=== PATIENT | female | born 1950 | race Caucasian/White ===

== ENCOUNTER 2016-10-10 10:26 | Emergency (ER) | payer MEDICARE ==
[~2016-10-10] VITALS: Ht 157.5 cm; Wt 74.2 kg
[~2016-10-10 10:26] MED LIST: ALLEGRA60 MG PO; AMLODIPINE5 MG PO; ASMANEX 60220 MCG IN; AUGMENTIN500TAB PO; BENAZEPRIL5 M2 PO; BENAZEPRIL5 M3 PO; CHANTIX1 MG PO; COZAAR50 MG PO; LEVAQUIN750 MG PO; LEVOTHYROXIN50 MCG PO; LORTAB 7.57.5 MG PO; LOSARTAN POT50 MG PO; METOPROL TAR25 MG PO; MULTI FOR HER 50+ PO; MULTIVITA2 PO; MULTIVITAMI9 PO; NASACORT AQ55 MCG/AC; OMEPRAZOLE20 MG PO; OXY1; PREDNISONE20 MG PO; PREFEST; PROTANDIM PO; PROVENTIL IN; ROBITUSSIN AC10 ML PO; SULFACET SOD10 % OU; SYMBICORT1 AE1 IN; VIT B12 SL; VITAMIN B-121000 MC1 SL; VITAMIN B-12500 MC2 BU; VITAMIN B-COMPLEX; ZITHROMAX250 MG PO; [UNRECOGNIZED DRUG - OTHER] PO
[2016-10-10] MEDS ORDERED: SYMBICORT 80-4.5MCG (10:36)
[2016-10-10 11:29] LABS: HEMATOCRIT 43.1 % (37.0-47.0); HEMOGLOBIN 14.5 g/dl (12.0-16.0); IMMATURE GRANULOCYTES 0.2 % (0.0-1.0); MEAN CELL VOLUME 97.1 fL CALC (80.0-100.0); MEAN CORPUSCULAR HGB 32.7 pG CALC (26.0-32.0); MEAN CORPUSCULAR HGB CONC 33.6 g/L CALC (32.0-36.0); NEUT# 3.06 thou/uL (2.00-7.15); RED BLOOD COUNT 4.44 mill/uL (4.20-5.60); RED CELL DISTRI WIDTH 13.8 % (11.5-15.5)
[2016-10-10 12:41] LABS: ALBUMIN 4.3 g/dL (3.2-5.0); ALKALINE PHOSPHATASE 55 u/l (38-126); ANION GAP 15 (6-22 (CALC)); BILIRUBIN, TOTAL 0.8 mg/dL (0.0-1.4); BUN 15 mg/dL (8-23); BUN/CREATININE RATIO 23 (12-20 (CALC)); CALCIUM 9.9 mg/dL (8.4-10.2); CARBON DIOXIDE 26 mmol/l (22-30); CHLORIDE 103 mmol/l (95-108); CREATININE 0.6 mg/dL (0.5-1.0); GFR > 60 ML/MIN (>=60 (CALC)); GFR FOR AFR.AMER. > 60 ML/MIN (>=60 (CALC)); GLUCOSE 114 mg/dL (82-115); POTASSIUM 4.2 mmol/l (3.5-5.1); SGOT/AST 33 u/l (9-36); SGPT/ALT 36 u/l (11-66); SODIUM 139 mmol/l (137-146); TOTAL PROTEIN 7.1 g/dL (6.3-8.2)
[2016-10-10 17:40] VITALS: BP 168/100
== END 2016-10-10 17:48 | disposition home or self-care (01) ==
LOC: ED 10:26
PROVIDERS: Emergency Medicine
DX: H57.04 Mydriasis (principal); I10 Essential (primary) hypertension; J44.9 Chronic obstructive pulmonary disease, unspecified; E03.9 Hypothyroidism, unspecified; Z85.3 Personal history of malignant neoplasm of breast; Z92.3 Personal history of irradiation; Z92.21 Personal history of antineoplastic chemotherapy
CPT/HCPCS: A9579

== ENCOUNTER → 2018-07-16 | Outpatient (REF) | payer MEDICARE ==
[~2018-07-16] MED LIST changes: +SYMBICORT 80-4.5MCG
== END | disposition home or self-care (01) ==
LOC: BD 10:39
PROVIDERS: ATTEND Nurse Practitioner
DX: N95.1 Menopausal and female climacteric states (principal)

== ENCOUNTER → 2018-08-04 | Outpatient (REF) | payer MEDICARE ==
[2018-08-04 08:21] LABS: HEMATOCRIT 44.9 % (37.0-47.0); HEMOGLOBIN 14.8 g/dl (12.0-16.0); MEAN CELL VOLUME 96.6 fL CALC (80.0-100.0); MEAN CORPUSCULAR HGB 31.8 pG CALC (26.0-32.0); RED BLOOD COUNT 4.65 mill/uL (4.20-5.60); RED CELL DISTRI WIDTH 13.6 % (11.5-15.5)
[2018-08-04 08:35] LABS: ALBUMIN 4.1 g/dL (3.2-5.0); ALKALINE PHOSPHATASE 61 u/l (38-126); ANION GAP 13 (6-22 (CALC)); BILIRUBIN, TOTAL 0.4 mg/dL (0.0-1.4); BUN 20 mg/dL (8-23); BUN/CREATININE RATIO 28 (12-20 (CALC)); CALCULATED LDLCHOLESTEROL 112 mg/dL (62-129 (CALC)); CARBON DIOXIDE 27 mmol/l (22-30); CHLORIDE 104 mmol/l (95-108); CHOLESTEROL HDL RATIO 2.2 (<4.4 (CALC)); CREATININE 0.7 mg/dL (0.5-1.0); GFR > 60 ML/MIN (>=60 (CALC)); GFR FOR AFR.AMER. > 60 ML/MIN (>=60 (CALC)); HDL CHOLESTEROL 105 mg/dL (>=40); POTASSIUM 4.5 mmol/l (3.5-5.1); SGOT/AST 29 u/l (9-36); SODIUM 140 mmol/l (137-146); TOTAL CHOLESTEROL 226 mg/dl (0-199); TOTAL PROTEIN 6.7 g/dL (6.3-8.2); TOTAL TRIGLYCERIDES 44 mg/dl (30-149); VLDL CHOLESTROL 9 mg/dl (0-48 (CALC))
[2018-08-04 09:02] LABS: TSH, 3RD GENERATION 0.67 uIU/mL (0.47 - 4.68)
== END | disposition home or self-care (01) ==
LOC: LAB 07:29
PROVIDERS: ATTEND Nurse Practitioner
DX: E03.9 Hypothyroidism, unspecified (principal); I10 Essential (primary) hypertension; J43.1 Panlobular emphysema

== ENCOUNTER 2018-08-12 14:36 | Emergency (ER) | payer MEDICARE ==
[~2018-08-12] VITALS: Ht 157.5 cm; Wt 80.0 kg
[2018-08-12] MEDS ORDERED: LOSARTAN POT50 MG PO (14:54)
[2018-08-12 15:09] LABS: HEMATOCRIT 46.5 % (37.0-47.0); IMMATURE GRANULOCYTES 0.4 % (0.0-5.0); MEAN CELL VOLUME 95.3 fL CALC (80.0-100.0); MEAN CORPUSCULAR HGB 30.7 pG CALC (26.0-32.0); MEAN CORPUSCULAR HGB CONC 32.3 g/L CALC (32.0-36.0); NEUT# 5.16 thou/uL (2.00-7.15); RED BLOOD COUNT 4.88 mill/uL (4.20-5.60); RED CELL DISTRI WIDTH 13.3 % (11.5-15.5)
[2018-08-12 15:11] LABS: GFR > 60 ML/MIN (>=60 (CALC)); GFR FOR AFR.AMER. > 60 ML/MIN (>=60 (CALC))
[2018-08-12 15:20] LABS: ANION GAP 14 (6-22 (CALC)); BUN 20 mg/dL (8-23); BUN/CREATININE RATIO 37 (12-20 (CALC)); CARBON DIOXIDE 25 mmol/l (22-30); CHLORIDE 103 mmol/l (95-108); CREATININE 0.5 mg/dL (0.5-1.0); GFR > 60 ML/MIN (>=60 (CALC)); GFR FOR AFR.AMER. > 60 ML/MIN (>=60 (CALC)); SODIUM 139 mmol/l (137-146)
[2018-08-12 17:09] LABS: ACT PARTIAL THROMBO TIME 25.9 SECONDS (20.0-32.5); INTERNATIONAL NORMALIZED RATIO 0.9 RATIO (0.7-1.3); PROTHROMBIN TIME 9.6 SECONDS (9.0-12.5)
[2018-08-12 17:26] VITALS: BP 182/98
== END 2018-08-12 17:27 | disposition short-term general hospital (02) ==
LOC: ED 14:36
PROVIDERS: Family Medicine
DX: I26.99 Other pulmonary embolism without acute cor pulmonale (principal); R91.8 Other nonspecific abnormal finding of lung field; Z87.891 Personal history of nicotine dependence; R06.02 Shortness of breath
CPT/HCPCS: J1644; Q9967

== ENCOUNTER 2018-09-28 13:43 | Emergency (ER) | payer MEDICARE ==
[~2018-09-28] VITALS: Ht 157.5 cm; Wt 60.0 kg
[2018-09-28 14:13] LABS: GFR > 60 ML/MIN (>=60 (CALC)); GFR FOR AFR.AMER. > 60 ML/MIN (>=60 (CALC))
[2018-09-28 14:16] LABS: HEMATOCRIT 43.4 % (37.0-47.0); HEMOGLOBIN 14.3 g/dl (12.0-16.0); IMMATURE GRANULOCYTES 0.3 % (0.0-5.0); MEAN CELL VOLUME 94.3 fL CALC (80.0-100.0); MEAN CORPUSCULAR HGB 31.1 pG CALC (26.0-32.0); MEAN CORPUSCULAR HGB CONC 32.9 g/L CALC (32.0-36.0); NEUT# 4.21 thou/uL (2.00-7.15); RED BLOOD COUNT 4.6 mill/uL (4.20-5.60)
[2018-09-28 14:27] LABS: ALBUMIN 4.4 g/dL (3.2-5.0); ALKALINE PHOSPHATASE 65 u/l (38-126); ANION GAP 14 (6-22 (CALC)); BILIRUBIN, TOTAL 0.4 mg/dL (0.0-1.4); BUN 20 mg/dL (8-23); BUN/CREATININE RATIO 35 (12-20 (CALC)); CARBON DIOXIDE 27 mmol/l (22-30); CHLORIDE 102 mmol/l (95-108); CREATININE 0.6 mg/dL (0.5-1.0); GFR > 60 ML/MIN (>=60 (CALC)); GFR FOR AFR.AMER. > 60 ML/MIN (>=60 (CALC)); SGOT/AST 37 u/l (9-36); SODIUM 139 mmol/l (137-146); TOTAL PROTEIN 7.1 g/dL (6.3-8.2)
[2018-09-28 14:28] LABS: INTERNATIONAL NORMALIZED RATIO 0.9 RATIO (0.7-1.3); PROTHROMBIN TIME 9.9 SECONDS (9.0-12.5)
[2018-09-28 14:32] LABS: POTASSIUM 3.8 mmol/l (3.5-5.1)
[2018-09-28] MEDS ORDERED: AMLODIPINE5 MG PO (15:22)
[2018-09-28] MEDS ORDERED: ELIQUIS5 MG PO (15:23)
[2018-09-28] MEDS ORDERED: SYMBICORT1 AE1 IN (15:36)
[2018-09-28] MEDS ORDERED: ALENDRONATE70 MG PO (15:36)
[2018-09-28] MEDS ORDERED: SPIRIVA RE2.5 MCG/AC IN (15:37)
[2018-09-28 17:09] VITALS: BP 135/92
== END 2018-09-28 17:09 | disposition home or self-care (01) ==
LOC: ED 13:43
PROVIDERS: Emergency Medicine
DX: R06.02 Shortness of breath (principal); I26.99 Other pulmonary embolism without acute cor pulmonale; I10 Essential (primary) hypertension; Z79.01 Long term (current) use of anticoagulants
CPT/HCPCS: Q9967

== ENCOUNTER 2018-11-23 12:14 | Emergency (ER) | payer MEDICARE ==
[~2018-11-23] VITALS: Ht 157.5 cm; Wt 70.0 kg
[~2018-11-23 12:14] MED LIST changes: +ALENDRONATE70 MG PO; +ELIQUIS5 MG PO; +SPIRIVA RE2.5 MCG/AC IN
[2018-11-23 13:07] LABS: HEMOGLOBIN 14.2 g/dl (12.0-16.0); IMMATURE GRANULOCYTES 1.2 % (0.0-5.0); MEAN CELL VOLUME 94.1 fL CALC (80.0-100.0); MEAN CORPUSCULAR HGB 31.1 pG CALC (26.0-32.0); NEUT# 5.73 thou/uL (2.00-7.15); RED BLOOD COUNT 4.57 mill/uL (4.20-5.60); RED CELL DISTRI WIDTH 13.8 % (11.5-15.5)
[2018-11-23 13:20] LABS: ALBUMIN 3.6 g/dL (3.2-5.0); ALKALINE PHOSPHATASE 66 u/l (38-126); ANION GAP 12 (6-22 (CALC)); BILIRUBIN, TOTAL 0.5 mg/dL (0.0-1.4); BUN 15 mg/dL (8-23); BUN/CREATININE RATIO 29 (12-20 (CALC)); CARBON DIOXIDE 27 mmol/l (22-30); CHLORIDE 103 mmol/l (95-108); CREATININE 0.5 mg/dL (0.5-1.0); GFR > 60 ML/MIN (>=60 (CALC)); GFR FOR AFR.AMER. > 60 ML/MIN (>=60 (CALC)); POTASSIUM 3.5 mmol/l (3.5-5.1); SGOT/AST 28 u/l (9-36); SODIUM 138 mmol/l (137-146); TOTAL PROTEIN 6.1 g/dL (6.3-8.2)
[2018-11-23 13:50] VITALS: BP 136/79
== END 2018-11-23 13:50 | disposition home or self-care (01) ==
LOC: ED 12:14
PROVIDERS: Emergency Medicine
DX: C34.90 Malignant neoplasm of unspecified part of unspecified bronchus or lung (principal); J91.8 Pleural effusion in other conditions classified elsewhere; I26.99 Other pulmonary embolism without acute cor pulmonale; I10 Essential (primary) hypertension; Z96.89 Presence of other specified functional implants

== ENCOUNTER 2018-12-07 08:19 | Inpatient (IN) | payer MEDICARE ==
[~2018-12-07] VITALS: Ht 157.5 cm; Wt 69.1 kg
--- NOTE | 2018-12-07 08:19 | NUR ---
PT FROM CAR TO ROOM 9 CHOCO TORIBIO COMPLETED AT BEDSIDE
--- NOTE | 2018-12-07 08:22 | NUR ---
PT WITH DYSPNEA AND TACHYPNEA, C/O RT MID BACK PAIN INCREASING FOR THREE DAYS. PT STATES SHE HAD FIRST CHEMO TREATMENT FOR RT LUNG CA ON November AND HAS BEEN FEELING DRAINED SINCE THEN. PT STATES SHE CAN BREATHE EASIER WHEN SHE LIES FLAT IN BED. , O2 SAT 89-92%ON RA
[2018-12-07 08:50] LABS: IMMATURE GRANULOCYTES 0.6 % (0.0-5.0); MEAN CELL VOLUME 94.1 fL CALC (80.0-100.0); MEAN CORPUSCULAR HGB 31.3 pG CALC (26.0-32.0); MEAN CORPUSCULAR HGB CONC 33.3 g/L CALC (32.0-36.0); NEUT# 11.11 thou/uL (2.00-7.15); RED BLOOD COUNT 5.62 mill/uL (4.20-5.60); RED CELL DISTRI WIDTH 13.8 % (11.5-15.5)
--- NOTE | 2018-12-07 08:50 | NUR ---
APPLIED O2@2LPM VIA NC FOR SUPPORTIVE CARE AFTER ABG.
--- NOTE | 2018-12-07 08:56 | NUR ---
PLACED PT ON 2LNC
[2018-12-07 08:59] LABS: BUN 15 mg/dL (8-23); BUN/CREATININE RATIO 23 (12-20 (CALC)); CARBON DIOXIDE 27 mmol/l (22-30); CHLORIDE 95 mmol/l (95-108); CREATININE 0.7 mg/dL (0.5-1.0); GFR > 60 ML/MIN (>=60 (CALC)); GFR FOR AFR.AMER. > 60 ML/MIN (>=60 (CALC)); SGOT/AST 44 u/l (9-36); SODIUM 133 mmol/l (137-146)
[2018-12-07 09:05] LABS: HEMATOCRIT 52.9 % (37.0-47.0); HEMOGLOBIN 17.6 g/dl (12.0-16.0)
--- NOTE | 2018-12-07 09:11 | NUR ---
RESP EVEN AND UNLABORED, VSS. PT C/O SHARP STABBING RT POSTERIOR MID BACK PAIN 10/10 WITH INSPIRATION. MEDICATED ORDERED. RESPOSITIONED FOR COMFORT. CONTINUES ON 02@2LPM VIA NC.
[2018-12-07 09:24] LABS: ANION GAP 15 (6-22 (CALC)); BILIRUBIN, TOTAL 1.1 mg/dL (0.0-1.4); POTASSIUM 4.4 mmol/l (3.5-5.1)
[2018-12-07 09:25] LABS: ALBUMIN 4.4 g/dL (3.2-5.0); ALKALINE PHOSPHATASE 108 u/l (38-126); TOTAL PROTEIN 7.7 g/dL (6.3-8.2)
--- NOTE | 2018-12-07 09:47 | NUR ---
MD AT BEDSIDE TO DISCUSS POC
--- NOTE | 2018-12-07 11:15 | NUR ---
Pt to radiology at this time. pt to be transported to [facility] after procedure.
--- NOTE | 2018-12-07 11:30 | NUR ---
CALLED REPORT TO [facility] MS[facility]
--- NOTE | 2018-12-07 11:36 | NUR ---
PT READY FOR TRANSFER TO [facility] TODAY [facility] WILL REMAIN INTACT FOR A FEW DAYS FOR URINARY RETENTION
--- NOTE | 2018-12-07 11:45 | NUR ---
MEDICATION ADMINISTERED IN RADIOLOGY DUE TO PATIENT HAVING PROCEDURE. UNABLE TO SCAN PATIENT AT TIME DUE TO NEED OF MEDICATION. VERIFIED PT WITH NAME AND
[2018-12-07 12:10] VITALS: BP 114/81
--- NOTE | 2018-12-07 12:15 | NUR ---
PT ARRIVED TO THE UNIT VIA STRETCHER ACCOMPANIED BY STAFF. IV SITE IS FREE FROM REDNESS OR EDEMA.
--- NOTE | 2018-12-07 12:30 | NUR ---
ASSESSMENT IS COMPLTED: IV SITE IS FREE FROM REDNESS OR EDEMA. HR IS REG, PULSES ARE STRONG X4, ABD IS SOFT WITH ACTIVE BS. BREATH SOUNDS ARE CLEAR, BILATERALLY, PORT TO DRAIN THE LUNG. IS COVERED WITH DRESSING IS CDI. CONTINUE TO OBSERVE AND MONITOR.
[2018-12-07 15:00] VITALS: BP 101/69
--- NOTE | 2018-12-07 16:00 | NUR ---
pt is relaxing in bed with no distress noted. iv site is free from redness or edema.
--- NOTE | 2018-12-07 19:05 | NUR ---
REPORT RECEIVED FROM DAY NURSE. PT IS IN BED IN LOW FOWLERS POSITION. REPORTS HAVING SOME PAIN, BUT WANTS TO WAIT FOR TORODOL AVAILABILITY STATING THAT IT WORKS BETTER. WILL FOLLOW-UP WITH PAIN MEDICATION WHEN AVAILABLE TO GIVE. POC DISCUSSED AND PT DENIES ANY OTHER NEEDS AT THIS TIME. CALL LIGHT IS AT SIDE AND PT REMINDED OF ITS USE.
[2018-12-07 19:47] VITALS: BP 108/72
--- NOTE | 2018-12-07 20:05 | NUR ---
PT MEDICATED FOR PAIN REPORTED 11/09. ASSESSMENT COMPLETED AT THIS TIME. SKIN AND NEURO'S INTACT, NO EDEMA NOTED, LUNG SOUNDS CLEAR/DIM, HR REG, ABD SOFT NON-TENDER W/ACTIVE BOWEL SOUNDS. PT REPORT NORMAL URINATION, STOOL TWO DAYS AGO NORMAL FOR HER. FLUIDS ARE RUNNING TO 22 IN THE LFA/SITE APPEARS HEALTHY. NO S/O DISTRESS OTHER THAN PAIN 11/09, PT TAKING DEEP BREATHS FOR PAIN. RESP @20. CALL LIGHT AT SIDE AND PT HAS BEEN ENCOURAGED TO CALL ANY NEEDS ARISE.
--- NOTE | 2018-12-07 23:15 | NUR ---
PT AMBULATED TO RESTROOM AND BACK TO BED, ASSISTED BY OTHER FLOOR NURSE. I ENTERED THE ROOM AT THIS TIME, PT WAS JUST GETTING BACK INTO THE BED. 800CC OF CLEAR YELLOW URINE EMPTIED. IVF REPLACED AT THIS TIME. PT DENIES ANY OTHER NEEDS AT THIS TIME. CALL LIGHT AT SIDE AND PT CONFIRMS THAT SHE CAN REACH.
--- NOTE | 2018-12-07 23:52 | NUR ---
PT MEDICATED W/IV ANTIBIOTIC THERAPY. PT WAS BACK TO SLEEP AT THIS TIME. NO S/O DISTRESS NOTED.
--- NOTE | 2018-12-08 01:35 | NUR ---
PT IS SLEEPING, NO S/O DISTRESS NOTED. CALL LIGHT AT SIDE.
[2018-12-08 04:05] VITALS: BP 121/66
[2018-12-08 04:35] LABS: IMMATURE GRANULOCYTES 0.3 % (0.0-5.0); MEAN CELL VOLUME 94.5 fL CALC (80.0-100.0); MEAN CORPUSCULAR HGB 30.9 pG CALC (26.0-32.0); MEAN CORPUSCULAR HGB CONC 32.7 g/L CALC (32.0-36.0); NEUT# 4.77 thou/uL (2.00-7.15); RED BLOOD COUNT 4.18 mill/uL (4.20-5.60); RED CELL DISTRI WIDTH 13.5 % (11.5-15.5)
[2018-12-08 04:37] LABS: HEMATOCRIT 39.5 % (37.0-47.0); HEMOGLOBIN 12.9 g/dl (12.0-16.0)
[2018-12-08 04:53] LABS: ALKALINE PHOSPHATASE 59 u/l (38-126); AMYLASE 39 u/l (30-110); ANION GAP 10 (6-22 (CALC)); BUN 16 mg/dL (8-23); BUN/CREATININE RATIO 32 (12-20 (CALC)); CARBON DIOXIDE 25 mmol/l (22-30); CHLORIDE 105 mmol/l (95-108); CREATININE 0.5 mg/dL (0.5-1.0); GFR > 60 ML/MIN (>=60 (CALC)); GFR FOR AFR.AMER. > 60 ML/MIN (>=60 (CALC)); LIPASE 69 u/l (23-300); MAGNESIUM 2.1 mg/dL (1.6-2.3); POTASSIUM 4.5 mmol/l (3.5-5.1); SGOT/AST 32 u/l (9-36); SODIUM 134 mmol/l (137-146)
[2018-12-08 04:56] LABS: ALBUMIN 2.5 g/dL (3.2-5.0); BILIRUBIN, TOTAL 0.6 mg/dL (0.0-1.4); TOTAL PROTEIN 4.6 g/dL (6.3-8.2)
--- NOTE | 2018-12-08 05:50 | NUR ---
PT MEDICATED W/IV ANTIBIOITIC THERAPY ORDERS PROVIDE. PT ASSISTED TO RESTROOM AND BACK TO BED. PT DENIES PAIN AT THIS TIME, REPORTING SHE HAS NOT FELT PAIN "SINCE 8PM LAST NIGHT." PT REPORT FEELING SOB UPON AMBULATION, LUNG SOUNDS DIM TO RLL, CLEAR THROUGHOUT 02SAT @96% ON 02@2L. PT REPORTS THAT SHE FEELS LIKE HER LUNG IS FILLING UP AGAIN, DENIES NEED FOR RESPIRATORY. WILL CONTINUE TO MONITOR.
--- NOTE | 2018-12-08 07:10 | NUR ---
PT REPORT RECIEVED FROM YULIYA LYNCH. PT SLEEPING. NO S/S OF DISTRESS. CALL LIGHT IN REACH. WILL CONTINUE TO MONITOR.
[2018-12-08 08:08] VITALS: BP 110/77
--- NOTE | 2018-12-08 08:08 | NUR ---
PT A/O X3. SPEECH IS CLEAR. NONPRODUCTIVE COUGH NOTED; SOB WHILE AT REST AND ON EXERTION. O2 @2L ON PT. RESP EVEN AND UNLABORED. LT UPPER LOBE CLEAR, LOWER LOBES DIMINISHED. RT LUNG DIMINISHED. BOWEL SOUNDS ACTIVE X4. PT C/O ABDOMINAL DISCOMFORT; REPOSITIONED FOR COMFORT. DRESSING TO RT SIDE OF ABDOMEN;CDI. STRONG RADIAL AND PEDAL PULSES. PT DENIES ANY FURTHER NEEDS. POC DISCUSSED. SAFETY PRECAUTIONS IN PLACE. CALL LIGHT IN REACH. WILL CONTINUE TO MONITOR.
--- NOTE | 2018-12-08 12:39 | NUR ---
PT C/O RT CHEST PAIN; 5 OUT OF 10 ON PAIN SCALE. MEDICATED W/ 15 MG TORADOL IV. REPOSITIONED FOR COMFORT. PT DENIES ANY FURTHER NEEDS. O2 @2L ON PT. CALL LIGHT IN REACH. WILL CONTINUE TO MONITOR.
--- NOTE | 2018-12-08 14:28 | NUR ---
MD WOULD LIKE PT RT PORT TO BE DRAINED. PT HAD FAMILY MEMBER BRING IN NEW SUPPLIES. BRANDON, RADIOLOGIST CALLED REGARDING NEED OF PORT DRAINAGE. MD NOTIFIED OF RADIOLOGIST RESPONSE. CONSULT TO BE CALLED BY MD TO DR. PARKER. WILL CONTINUE TO MONITOR.
[2018-12-08 15:53] VITALS: BP 122/78
--- NOTE | 2018-12-08 16:33 | NUR ---
PT UP TO RESTROOM. NO C/O PAIN OR NEEDS. CALL LIGHT IN REACH. WILL CONTINUE TO MONITOR.
[2018-12-08 20:25] VITALS: BP 109/68
--- NOTE | 2018-12-08 21:31 | NUR ---
PT ASSESSED, POC DISCUSSED. PT WANTED TO HOLD ELOQUIS DUE TO POSSIBILITY OF TUBE REPLACEMENT TOMORROW. LUNG SOUNDS ARE CLEAR THROUGHOUT/DIM TO RLL. NEURO'S INTACT, SKIN INTACT, NO NOTED EDEMA. CALL LIGHT IS W/IN REACH AND PT ENCOURAGED TO CALL IF ANY NEEDS ARISE.
--- NOTE | 2018-12-09 00:11 | NUR ---
PT MEDICATED ORDERS PROVIDE W/IV ANTIBIOTIC THERAPY. PT WAS SLEEPING SOUNDLY, AWOKE TO MY VOICE. FLUIDS HAVE BEEN REMOVED FROM BEDSIDE AND POC/DIET DISCUSSED W/PT. DENIES ANY OTHER NEEDS AT THIS TIME, BUT HAS BEEN ENCOURAGED TO CALL NEEDS ARISE.
[2018-12-09 05:01] VITALS: BP 122/81
--- NOTE | 2018-12-09 05:47 | NUR ---
ASSISTED PT TO RESTROOM AND BACK TO BED. EXTREME SOB UPON EXERTION, BUT QUICKLY RECOVERS UPON RETURNING TO BED AND LAYING FLAT. IV ANTIBIOTIIC THERAPY ADMINSTERED AT THIS TIME. CALL LIGHT AT BEDSIDE AND PT ENCOURAGED TO CALL.
--- NOTE | 2018-12-09 07:15 | NUR ---
PT REPORT RECIEVED FROM YULIYA RECIO. PT SLEEPING. NO S/S OF DISTRESS. CALL LIGHT IN REACH. WILL CONTINUE TO MONITOR.
[2018-12-09 08:40] VITALS: BP 132/80
--- NOTE | 2018-12-09 08:40 | NUR ---
PT A/O X3. SPEECH IS CLEAR. PT C/O INCREASED SOB. O2 @2L ON PT. ASSISTED TO COMFORTABLE POSITION IN BED. RESP EVEN AND UNLABORED. LUNG SOUNDS DIMINISHED. BOWEL SOUNDS ACTIVE X4. STRONG RADIAL AND PEDAL PULSES. #20 RFA SL. FLUSHED AND PATENT. SITE APPEARS HEALTHY. DRESSING TO RT ABDOMEN;CDI. PT DENIES ANY PAIN OR FURTHER NEEDS. POC DISCUSSED. SAFETY PRECAUTIONS IN PLACE. CALL LIGHT IN REACH. WILL CONTINUE TO MONITOR.
--- NOTE | 2018-12-09 12:28 | NUR ---
PT LYING IN BED. NO C/O PAIN OR NEEDS. CALL LIGHT IN REACH. WILL CONTINUE TO MONITOR.
--- NOTE | 2018-12-09 16:40 | NUR ---
PT WATCHING TELEVISION. NO C/O PAIN OR NEEDS. CALL LIGHT IN REACH. WILL CONTINUE TO MONITOR.
[2018-12-09 16:57] VITALS: BP 137/88
--- NOTE | 2018-12-09 19:36 | NUR ---
[facility]
[2018-12-09 19:59] VITALS: BP 121/79
--- NOTE | 2018-12-09 21:23 | NUR ---
ASSESSMENT COMPLETED; IV SITE PATENT AND SL TO RAC; PT. C/O BACK PAIN AND IS MEDICATED WITH ORDERED IV TORADOL.ALSO MEDICATED WITH ONE TIME LOVENOX. INTERNAL PORT NOTED TO RIGHT SIDE WITH DRESSING CDI. UPDATED WITH POC.
--- NOTE | 2018-12-09 21:28 | NUR ---
TRANSPORT HERE TO ELECTION ASSISTANT PT. PT. STABLE AND ON O2 @2LITERS/MIN PER NC.
--- NOTE | 2018-12-09 22:00 | NUR ---
NOTIFIED [facility] THAT PT. IS IN TRANSIT AND OF ADMINISTRATION OF LOVENOX AND TORADOL BY THIS ASSISTED LIVING MANAGER PRIOR TO LEAVING.
== END 2018-12-09 21:30 | disposition short-term general hospital (02) | DRG 177 ==
LOC: ED 08:19 → ED-I 10:48 → ED 11:15 → MS2 11:16
PROVIDERS: Emergency Medicine; ADMIT Internal Medicine Nephrology; ATTEND Internal Medicine Nephrology
PROC: 0W9930Z Drainage of Right Pleural Cavity with Drainage Device, Percutaneous Approach (ICD-10-PCS; principal; 2018-12-07)
DX: J86.9 Pyothorax without fistula (principal); J18.9 Pneumonia, unspecified organism; J96.01 Acute respiratory failure with hypoxia; C34.91 Malignant neoplasm of unspecified part of right bronchus or lung; J91.0 Malignant pleural effusion; I10 Essential (primary) hypertension; I25.10 Atherosclerotic heart disease of native coronary artery without angina pectoris; E03.9 Hypothyroidism, unspecified; J44.9 Chronic obstructive pulmonary disease, unspecified; I95.9 Hypotension, unspecified; G89.3 Neoplasm related pain (acute) (chronic); B96.89 Other specified bacterial agents as the cause of diseases classified elsewhere; Z85.3 Personal history of malignant neoplasm of breast; Z86.711 Personal history of pulmonary embolism; Z79.899 Other long term (current) drug therapy
CPT/HCPCS: J1650

== ENCOUNTER 2019-06-09 | Emergency (ER) | payer MEDICARE | END 2019-06-09 20:05 | disposition home or self-care (01) | DX: I83.11 Varicose veins of right lower extremity with inflammation (principal); I10 Essential (primary) hypertension; J44.9 Chronic obstructive pulmonary disease, unspecified; Z85.118 Personal history of other malignant neoplasm of bronchus and lung; Z92.3 Personal history of irradiation; Z92.21 Personal history of antineoplastic chemotherapy; Z86.718 Personal history of other venous thrombosis and embolism; Z86.711 Personal history of pulmonary embolism ==

== ENCOUNTER 2019-06-13 | Emergency (ER) | payer MEDICARE ==
[2019-06-13] MEDS ORDERED: ALENDRONATE SOD70 MG PO (09:30)
[2019-06-13] MEDS ORDERED: AMOX/K CLAV875 M1 PO (09:31)
[2019-06-13 09:39] LABS: HEMATOCRIT 41.8 % (37.0-47.0); HEMOGLOBIN 13.8 g/dl (12.0-16.0); IMMATURE GRANULOCYTES 0.3 % (0.0-5.0); NEUT# 7.26 thou/uL (2.00-7.15); RED BLOOD COUNT 4.18 mill/uL (4.20-5.60); RED CELL DISTRI WIDTH 12.6 % (11.5-15.5)
[2019-06-13 09:57] LABS: ACT PARTIAL THROMBO TIME 24.5 SECONDS (20.0-32.5); ALBUMIN 4.4 g/dL (3.2-5.0); ALKALINE PHOSPHATASE 75 u/l (38-126); ANION GAP 13 (6-22 (CALC)); BUN 17 mg/dL (8-23); BUN/CREATININE RATIO 29 (12-20 (CALC)); CARBON DIOXIDE 26 mmol/l (22-30); CHLORIDE 102 mmol/l (95-108); CREATININE 0.6 mg/dL (0.5-1.0); GFR > 60 ML/MIN (>=60 (CALC)); GFR FOR AFR.AMER. > 60 ML/MIN (>=60 (CALC)); INTERNATIONAL NORMALIZED RATIO 0.9 RATIO (0.7-1.3); LIPASE 100 u/l (23-300); POTASSIUM 3.9 mmol/l (3.5-5.1); PROTHROMBIN TIME 9.8 SECONDS (9.0-12.5); SGOT/AST 44 u/l (9-36); SODIUM 137 mmol/l (137-146); TOTAL PROTEIN 7.6 g/dL (6.3-8.2)
[2019-06-13 09:59] LABS: BILIRUBIN, TOTAL 0.6 mg/dL (0.0-1.4)
[2019-06-13 11:00] LABS: URINE BILIRUBIN - DIPSTICK NEGATIVE (NEGATIVE); URINE BLOOD DIPSTICK NEGATIVE (NEGATIVE); URINE COLOR YELLOW; URINE GLUCOSE - DIPSTICK NEGATIVE (NEGATIVE); URINE KETONE NEGATIVE (NEGATIVE); URINE LEUK ESTERASE NEGATIVE (NEGATIVE); URINE NITRITE - DIPSTICK NEGATIVE (Negative); URINE PROTEIN - DIPSTICK NEGATIVE (NEG-TRACE); URINE UROBILINOGEN - DIPSTICK 0.2 E.U./dL (0.2)
[2019-06-13] MEDS ORDERED: LEVAQUIN500 MG PO (11:47)
[2019-06-13] MEDS ORDERED: METRONIDAZOL250 MG PO (11:47)
== END 2019-06-13 11:56 | disposition home or self-care (01) ==
DX: L03.115 Cellulitis of right lower limb (principal); K57.32 Diverticulitis of large intestine without perforation or abscess without bleeding; C34.31 Malignant neoplasm of lower lobe, right bronchus or lung; J91.0 Malignant pleural effusion; I10 Essential (primary) hypertension; I71.2 Thoracic aortic aneurysm, without rupture; J44.9 Chronic obstructive pulmonary disease, unspecified; Z86.711 Personal history of pulmonary embolism
CPT/HCPCS: Q9967

== ENCOUNTER 2019-06-20 | Emergency (ER) | payer MEDICARE ==
[~2019-06-20] MED LIST changes: +ALENDRONATE SOD70 MG PO; +AMOX/K CLAV875 M1 PO; +LEVAQUIN500 MG PO; +METRONIDAZOL250 MG PO
[2019-06-20 20:08] LABS: HEMOGLOBIN 14.7 g/dl (12.0-16.0); IMMATURE GRANULOCYTES 0.3 % (0.0-5.0); MEAN CORPUSCULAR HGB 32.7 pG CALC (26.0-32.0); MEAN CORPUSCULAR HGB CONC 32.7 g/L CALC (32.0-36.0); NEUT# 6.67 thou/uL (2.00-7.15); RED BLOOD COUNT 4.5 mill/uL (4.20-5.60); RED CELL DISTRI WIDTH 12.6 % (11.5-15.5)
[2019-06-20 20:25] LABS: ALBUMIN 4.4 g/dL (3.2-5.0); ALKALINE PHOSPHATASE 80 u/l (38-126); ANION GAP 16 (6-22 (CALC)); BILIRUBIN, TOTAL 0.5 mg/dL (0.0-1.4); BUN 11 mg/dL (8-23); BUN/CREATININE RATIO 20 (12-20 (CALC)); CARBON DIOXIDE 24 mmol/l (22-30); CHLORIDE 102 mmol/l (95-108); CREATININE 0.5 mg/dL (0.5-1.0); GFR > 60 ML/MIN (>=60 (CALC)); GFR FOR AFR.AMER. > 60 ML/MIN (>=60 (CALC)); MAGNESIUM 2.1 mg/dL (1.6-2.3); POTASSIUM 4.3 mmol/l (3.5-5.1); SGOT/AST 39 u/l (9-36); SODIUM 138 mmol/l (137-146); TOTAL PROTEIN 7.5 g/dL (6.3-8.2)
[2019-06-20] MEDS ORDERED: TORADOL PO (20:56)
[2019-06-20] MEDS ORDERED: TRAMADOL HCL50 MG PO (20:56)
== END 2019-06-20 21:24 | disposition home or self-care (01) ==
PROVIDERS: Family Medicine
DX: M54.2 Cervicalgia (principal); R09.1 Pleurisy; I10 Essential (primary) hypertension

== ENCOUNTER 2019-07-18 | Emergency (ER) | payer MEDICARE ==
[~2019-07-18] MED LIST changes: +TORADOL PO; +TRAMADOL HCL50 MG PO
[2019-07-18 11:22] LABS: IMMATURE GRANULOCYTES 0.5 % (0.0-5.0); MEAN CELL VOLUME 95.4 fL CALC (80.0-100.0); MEAN CORPUSCULAR HGB 31.5 pG CALC (26.0-32.0); NEUT# 7.52 thou/uL (2.00-7.15); RED BLOOD COUNT 3.94 mill/uL (4.20-5.60); RED CELL DISTRI WIDTH 12.5 % (11.5-15.5)
[2019-07-18 11:23] LABS: GFR > 60 ML/MIN (>=60 (CALC)); GFR FOR AFR.AMER. > 60 ML/MIN (>=60 (CALC))
[2019-07-18 11:25] LABS: HEMATOCRIT 37.6 % (37.0-47.0); HEMOGLOBIN 12.4 g/dl (12.0-16.0)
[2019-07-18 11:34] LABS: ALBUMIN 3.9 g/dL (3.2-5.0); ALKALINE PHOSPHATASE 101 u/l (38-126); ANION GAP 12 (6-22 (CALC)); BILIRUBIN, TOTAL 0.7 mg/dL (0.0-1.4); BUN 14 mg/dL (8-23); BUN/CREATININE RATIO 28 (12-20 (CALC)); CARBON DIOXIDE 28 mmol/l (22-30); CHLORIDE 97 mmol/l (95-108); CREATININE 0.5 mg/dL (0.5-1.0); GFR > 60 ML/MIN (>=60 (CALC)); GFR FOR AFR.AMER. > 60 ML/MIN (>=60 (CALC)); SGOT/AST 37 u/l (9-36); SODIUM 132 mmol/l (137-146); TOTAL PROTEIN 6.8 g/dL (6.3-8.2)
[2019-07-18 12:01] LABS: INTERNATIONAL NORMALIZED RATIO 0.9 RATIO (0.7-1.3); PROTHROMBIN TIME 9.9 SECONDS (9.0-12.5)
== END 2019-07-18 13:10 | disposition short-term general hospital (02) ==
PROVIDERS: Family Medicine
DX: I26.99 Other pulmonary embolism without acute cor pulmonale (principal); I82.402 Acute embolism and thrombosis of unspecified deep veins of left lower extremity; C34.90 Malignant neoplasm of unspecified part of unspecified bronchus or lung; C22.9 Malignant neoplasm of liver, not specified as primary or secondary; I10 Essential (primary) hypertension
CPT/HCPCS: J1644; Q9967

== ENCOUNTER 2019-08-23 12:19 | Observation (INO) | payer MEDICARE ==
[~2019-08-23] VITALS: Ht 152.4 cm; Wt 79.8 kg
[2019-08-23 12:54] LABS: HEMATOCRIT 40.9 % (37.0-47.0); HEMOGLOBIN 13.5 g/dl (12.0-16.0); IMMATURE GRANULOCYTES 1.1 % (0.0-5.0); MEAN CELL VOLUME 95.6 fL CALC (80.0-100.0); MEAN CORPUSCULAR HGB 31.5 pG CALC (26.0-32.0); NEUT# 4.05 thou/uL (2.00-7.15); RED BLOOD COUNT 4.28 mill/uL (4.20-5.60); RED CELL DISTRI WIDTH 15.4 % (11.5-15.5)
[2019-08-23] MEDS ORDERED: ELIQUIS5 MG PO (12:56)
[2019-08-23 13:09] LABS: ANION GAP 13 (6-22 (CALC)); BUN 14 mg/dL (8-23); BUN/CREATININE RATIO 32 (12-20 (CALC)); CARBON DIOXIDE 25 mmol/l (22-30); CHLORIDE 102 mmol/l (95-108); CREATININE 0.4 mg/dL (0.5-1.0); GFR > 60 ML/MIN (>=60 (CALC)); GFR FOR AFR.AMER. > 60 ML/MIN (>=60 (CALC)); SODIUM 137 mmol/l (137-146)
[2019-08-23 18:00] VITALS: BP 167/93
[2019-08-23 20:15] VITALS: BP 163/94
[2019-08-24] VITALS (7 sets, daily range): BP systolic 95–150; BP diastolic 54–86
[2019-08-24 12:11] LABS: URINE BILIRUBIN - DIPSTICK NEGATIVE (NEGATIVE); URINE BLOOD DIPSTICK NEGATIVE (NEGATIVE); URINE COLOR YELLOW; URINE GLUCOSE - DIPSTICK NEGATIVE (NEGATIVE); URINE KETONE NEGATIVE (NEGATIVE); URINE LEUK ESTERASE NEGATIVE (NEGATIVE); URINE NITRITE - DIPSTICK NEGATIVE (Negative); URINE PH 6.5 (4.5-8.0); URINE PROTEIN - DIPSTICK NEGATIVE (NEG-TRACE); URINE UROBILINOGEN - DIPSTICK 0.2 E.U./dL (0.2)
[2019-08-25 03:25] VITALS: BP 119/73
[2019-08-25 06:05] LABS: HEMATOCRIT 37.6 % (37.0-47.0); HEMOGLOBIN 11.9 g/dl (12.0-16.0); MEAN CELL VOLUME 96.4 fL CALC (80.0-100.0); MEAN CORPUSCULAR HGB 30.5 pG CALC (26.0-32.0); MEAN CORPUSCULAR HGB CONC 31.6 g/dL CAL (32.0-36.0); RED BLOOD COUNT 3.9 mill/uL (4.20-5.60); RED CELL DISTRI WIDTH 15.8 % (11.5-15.5)
[2019-08-25 06:20] LABS: ANION GAP 10 (6-22 (CALC)); BUN 8 mg/dL (8-23); BUN/CREATININE RATIO 17 (12-20 (CALC)); CARBON DIOXIDE 25 mmol/l (22-30); CHLORIDE 109 mmol/l (95-108); CREATININE 0.4 mg/dL (0.5-1.0); GFR > 60 ML/MIN (>=60 (CALC)); GFR FOR AFR.AMER. > 60 ML/MIN (>=60 (CALC)); POTASSIUM 4.1 mmol/l (3.5-5.1); SODIUM 139 mmol/l (137-146)
[2019-08-25 09:01] VITALS: BP 141/79
[2019-08-25] MEDS ORDERED: OMNICEF300 MG PO (09:59)
[2019-08-25] MEDS ORDERED: ZITHROMAX500 MG PO (09:59)
== END 2019-08-25 11:22 | disposition home or self-care (01) ==
LOC: ED 12:19 → ED-I 14:25 → ED 15:05 → ED-I 15:06 → MS2 15:06
PROVIDERS: Family Medicine; Nurse Practitioner Family; ADMIT Internal Medicine; ATTEND Internal Medicine
DX: J18.9 Pneumonia, unspecified organism (principal); J43.9 Emphysema, unspecified; C34.91 Malignant neoplasm of unspecified part of right bronchus or lung; I10 Essential (primary) hypertension; I25.10 Atherosclerotic heart disease of native coronary artery without angina pectoris; I27.82 Chronic pulmonary embolism; I71.2 Thoracic aortic aneurysm, without rupture; E03.9 Hypothyroidism, unspecified; Z85.3 Personal history of malignant neoplasm of breast; Z87.891 Personal history of nicotine dependence; Z79.899 Other long term (current) drug therapy; Z86.718 Personal history of other venous thrombosis and embolism; Z79.01 Long term (current) use of anticoagulants; Z20.828 Contact with and (suspected) exposure to other viral communicable diseases
CPT/HCPCS: G0378; J0692; Q9967

== ENCOUNTER 2019-09-26 | Emergency (ER) | payer MEDICARE ==
[~2019-09-26] MED LIST changes: +OMNICEF300 MG PO; +ZITHROMAX500 MG PO
[2019-09-26 16:59] LABS: HEMATOCRIT 40.2 % (37.0-47.0); IMMATURE GRANULOCYTES 1.7 % (0.0-5.0); MEAN CELL VOLUME 97.6 fL CALC (80.0-100.0); MEAN CORPUSCULAR HGB 31.6 pG CALC (26.0-32.0); MEAN CORPUSCULAR HGB CONC 32.3 g/dL CAL (32.0-36.0); NEUT# 9.47 thou/uL (2.00-7.15); RED BLOOD COUNT 4.12 mill/uL (4.20-5.60); RED CELL DISTRI WIDTH 19.3 % (11.5-15.5)
[2019-09-26 17:16] LABS: GFR > 60 ML/MIN (>=60 (CALC)); GFR FOR AFR.AMER. > 60 ML/MIN (>=60 (CALC))
[2019-09-26 17:19] LABS: INTERNATIONAL NORMALIZED RATIO 0.9 RATIO (0.7-1.3); PROTHROMBIN TIME 9.4 SECONDS (9.0-12.5)
[2019-09-26 17:52] LABS: ALBUMIN 3.7 g/dL (3.2-5.0); ALKALINE PHOSPHATASE 113 u/l (38-126); ANION GAP 11 (6-22 (CALC)); BILIRUBIN, TOTAL 0.4 mg/dL (0.0-1.4); BUN 18 mg/dL (8-23); BUN/CREATININE RATIO 36 (12-20 (CALC)); CARBON DIOXIDE 23 mmol/l (22-30); CHLORIDE 105 mmol/l (95-108); CREATININE 0.5 mg/dL (0.5-1.0); GFR > 60 ML/MIN (>=60 (CALC)); GFR FOR AFR.AMER. > 60 ML/MIN (>=60 (CALC)); POTASSIUM 4.1 mmol/l (3.5-5.1); SGOT/AST 40 u/l (9-36); SODIUM 135 mmol/l (137-146); TOTAL PROTEIN 6.3 g/dL (6.3-8.2)
[2019-09-26 20:33] LABS: URINE BILIRUBIN - DIPSTICK NEGATIVE (NEGATIVE); URINE BLOOD DIPSTICK NEGATIVE (NEGATIVE); URINE COLOR YELLOW; URINE GLUCOSE - DIPSTICK NEGATIVE (NEGATIVE); URINE KETONE NEGATIVE (NEGATIVE); URINE LEUK ESTERASE NEGATIVE (NEGATIVE); URINE NITRITE - DIPSTICK NEGATIVE (Negative); URINE PROTEIN - DIPSTICK NEGATIVE (NEG-TRACE); URINE UROBILINOGEN - DIPSTICK 0.2 E.U./dL (0.2)
--- NOTE | 2019-09-29 09:15 | NUR ---
Covid results faxed to [facility] [phone].
== END 2019-09-27 01:05 | disposition short-term general hospital (02) ==
PROVIDERS: Family Medicine
DX: I82.412 Acute embolism and thrombosis of left femoral vein (principal); I10 Essential (primary) hypertension; J44.9 Chronic obstructive pulmonary disease, unspecified; Z85.118 Personal history of other malignant neoplasm of bronchus and lung; Z86.711 Personal history of pulmonary embolism; Z20.828 Contact with and (suspected) exposure to other viral communicable diseases; R41.0 Disorientation, unspecified; R06.02 Shortness of breath
CPT/HCPCS: Q9967

== ENCOUNTER 2020-03-08 15:03 | Emergency (ER) | payer MEDICARE ==
[~2020-03-08] VITALS: Ht 157.5 cm; Wt 69.5 kg
[2020-03-08 15:39] LABS: HEMATOCRIT 44.5 % (37.0-47.0); HEMOGLOBIN 14.7 g/dl (12.0-16.0); IMMATURE GRANULOCYTES 0.4 % (0.0-5.0); MEAN CELL VOLUME 100.5 fL CALC (80.0-100.0); MEAN CORPUSCULAR HGB 33.2 pG CALC (26.0-32.0); NEUT# 2.8 thou/uL (2.00-7.15); RED BLOOD COUNT 4.43 mill/uL (4.20-5.60); RED CELL DISTRI WIDTH 15.9 % (11.5-15.5)
[2020-03-08 16:02] LABS: ALBUMIN 3.9 g/dL (3.2-5.0); ALKALINE PHOSPHATASE 73 u/l (38-126); ANION GAP 12 (6-22 (CALC)); BILIRUBIN, TOTAL 0.7 mg/dL (0.0-1.4); BUN 13 mg/dL (8-23); BUN/CREATININE RATIO 22 (12-20 (CALC)); CARBON DIOXIDE 26 mmol/l (22-30); CHLORIDE 100 mmol/l (95-108); CREATININE 0.6 mg/dL (0.5-1.0); GFR > 60 ML/MIN (>=60 (CALC)); GFR FOR AFR.AMER. > 60 ML/MIN (>=60 (CALC)); POTASSIUM 3.8 mmol/l (3.5-5.1); SGOT/AST 46 u/l (9-36); SODIUM 134 mmol/l (137-146); TOTAL PROTEIN 6.9 g/dL (6.3-8.2)
[2020-03-08] MEDS ORDERED: LISINOPRIL10 MG PO (17:33)
[2020-03-08] MEDS ORDERED: MULTI VIT PO (17:33)
[2020-03-08] MEDS ORDERED: OPDIVO40 MG/4 ML IV (17:33)
[2020-03-08 17:54] VITALS: BP 145/101
== END 2020-03-08 18:07 | disposition left against medical advice (07) ==
LOC: ED 15:03
PROVIDERS: Family Medicine
DX: R07.9 Chest pain, unspecified (principal); C34.90 Malignant neoplasm of unspecified part of unspecified bronchus or lung; I10 Essential (primary) hypertension; J44.9 Chronic obstructive pulmonary disease, unspecified; I71.2 Thoracic aortic aneurysm, without rupture; Z86.711 Personal history of pulmonary embolism; Z79.899 Other long term (current) drug therapy; Z91.19 Patient's noncompliance with other medical treatment and regimen; Z20.828 Contact with and (suspected) exposure to other viral communicable diseases; R06.02 Shortness of breath
CPT/HCPCS: Q9967

== ENCOUNTER 2020-05-01 13:47 | Emergency (ER) | payer MEDICARE ==
[~2020-05-01] VITALS: Ht 157.5 cm; Wt 69.5 kg
[~2020-05-01 13:47] MED LIST changes: +LISINOPRIL10 MG PO; +MULTI VIT PO; +OPDIVO40 MG/4 ML IV
[2020-05-01 15:45] VITALS: BP 140/72
== END 2020-05-01 15:50 | disposition home or self-care (01) ==
LOC: ED 13:47
DX: R10.84 Generalized abdominal pain (principal); G89.29 Other chronic pain; K59.00 Constipation, unspecified; C34.90 Malignant neoplasm of unspecified part of unspecified bronchus or lung; C78.7 Secondary malignant neoplasm of liver and intrahepatic bile duct; C78.6 Secondary malignant neoplasm of retroperitoneum and peritoneum; C79.51 Secondary malignant neoplasm of bone; C79.31 Secondary malignant neoplasm of brain; I10 Essential (primary) hypertension; J44.9 Chronic obstructive pulmonary disease, unspecified

== ENCOUNTER 2020-09-15 09:40 | Emergency (ER) | payer MEDICARE ==
[2020-09-15 11:06] LABS: HEMATOCRIT 40.6 % (37.0-47.0); HEMOGLOBIN 12.6 g/dl (12.0-16.0); IMMATURE GRANULOCYTES 0.9 % (0.0-5.0); MEAN CELL VOLUME 95.1 fL CALC (80.0-100.0); MEAN CORPUSCULAR HGB 29.5 pG CALC (26.0-32.0); NEUT# 5.99 thou/uL (2.00-7.15); RED BLOOD COUNT 4.27 mill/uL (4.20-5.60); RED CELL DISTRI WIDTH 14.2 % (11.5-15.5)
[2020-09-15 11:22] LABS: ACT PARTIAL THROMBO TIME 28.8 SECONDS (20.0-32.5); INTERNATIONAL NORMALIZED RATIO 1.1 RATIO (0.7-1.3)
[2020-09-15] MEDS ORDERED: OXYCONTIN (12:15)
[2020-09-15] MEDS ORDERED: AMITIZA24 MC1 (12:15)
[2020-09-15] MEDS ORDERED: MULTIVITAMI9 PO (12:16)
[2020-09-15] MEDS ORDERED: MILK OF MAG30 ML/UDC PO (12:20)
[2020-09-15 13:06] LABS: ALBUMIN 3.2 g/dL (3.2-5.0); ALKALINE PHOSPHATASE 228 u/l (38-126); ANION GAP 8 (6-22 (CALC)); BILIRUBIN, TOTAL 0.6 mg/dL (0.0-1.4); BUN 5 mg/dL (8-23); BUN/CREATININE RATIO 13 (12-20 (CALC)); CARBON DIOXIDE 30 mmol/l (22-30); CHLORIDE 96 mmol/l (95-108); CREATININE 0.4 mg/dL (0.5-1.0); GFR > 60 ML/MIN (>=60 (CALC)); GFR FOR AFR.AMER. > 60 ML/MIN (>=60 (CALC)); LIPASE 35 u/l (23-300); POTASSIUM 4.1 mmol/l (3.5-5.1); SGOT/AST 63 u/l (9-36); SODIUM 130 mmol/l (137-146); TOTAL PROTEIN 5.8 g/dL (6.3-8.2)
[2020-09-15] MEDS ORDERED: LEVAQUIN750 M1 PO (14:46)
[2020-09-15 15:10] VITALS: BP 137/86
== END 2020-09-15 15:10 | disposition home or self-care (01) ==
LOC: ED 09:40
DX: J18.9 Pneumonia, unspecified organism (principal); J44.0 Chronic obstructive pulmonary disease with (acute) lower respiratory infection; C34.90 Malignant neoplasm of unspecified part of unspecified bronchus or lung; C79.9 Secondary malignant neoplasm of unspecified site; I10 Essential (primary) hypertension; Z86.711 Personal history of pulmonary embolism; Z86.718 Personal history of other venous thrombosis and embolism; Z79.01 Long term (current) use of anticoagulants; Z95.828 Presence of other vascular implants and grafts; Z99.81 Dependence on supplemental oxygen; Z92.21 Personal history of antineoplastic chemotherapy; Z92.3 Personal history of irradiation; Z20.822 Contact with and (suspected) exposure to COVID-19
CPT/HCPCS: J1956; J2997; Q9967